=== PATIENT | female | born 1950 | race Caucasian/White ===

== ENCOUNTER 2019-03-10 17:25 | Emergency (ER) | payer MEDICARE ==
--- NOTE | 2019-03-10 17:31 | ER Document Report ---
ED General - General Stated Complaint: RESPIRATORY DISTRESS Time Seen by Provider: 03/10/19 17:31 Primary Care Provider: FARTUN SANCHEZ PA-C [NO LOCAL MD] - Follow up in 3-5 days Notes: Patient is a 68-year-old female with history of COPD that presents to the emergency department for chief complaint of shortness of breath and difficulty breathing. Patient reports that she started feeling more short of breath with the last 48 hours, she was diagnosed with COPD about a year ago, she does use inhaler at home with albuterol, but is not on home oxygen. She states she is noticed wheezing, cough and increased work of breathing. She denies having any chest pain, fevers, chills, night sweats, nausea, vomiting or abdominal pain. She denies being on steroids currently, is not sure of any other medications she takes for COPD. Past Medical History: COPD, hypertension, hyperlipidemia Past Surgical History: Denies pertinent surgical history Social History: Former smoker, no alcohol or drug use, lives at home Family History: Reviewed and noncontributory for presenting illness Allergies: Reviewed, see documented allergy list. REVIEW OF SYSTEMS: Other than noted above, the 12 point review of systems was reviewed with the patient and were negative, all pertinent findings are included in the HPI. PHYSICAL EXAMINATION: Vital signs reviewed, nursing noted reviewed. GENERAL: Patient is in moderate respiratory distress, increased work of breathing HEAD: Atraumatic, normocephalic. EYES: Eyes appear normal, extraocular movements intact, sclera anicteric, conjunctiva are normal. ENT: nares patent, oropharynx clear without exudates. Moist mucous membranes. NECK: Normal range of motion, supple without lymphadenopathy LUNGS: Moderate respiratory distress, increased work of breathing, diffuse bilateral wheezing noted throughout all lung mendieta. HEART: Regular rate and rhythm without murmurs ABDOMEN: Soft, nontender, normoactive bowel sounds. No rebound, guarding, or rigidity. No masses appreciated. EXTREMITIES: Nontender, good range of motion, no pitting or edema. NEUROLOGICAL: No focal neurological deficits. Moves all extremities spontaneously Motor and sensory grossly intact on exam. PSYCH: Patient appears anxious on initial exam SKIN: Warm, Dry, normal turgor, no rashes or lesions noted on exposed skin TRAVEL OUTSIDE OF THE [place] IN LAST 30 DAYS: No - Related Data Allergies/Adverse Reactions: No Known Allergies Allergy (Verified 03/15/13 21:32) Past Medical History - Social History Smoking Status: Former Smoker Family History: Reviewed & Not Pertinent, Hypertension - Past Medical History Cardiac Medical History: Reports: Hx Hypercholesterolemia, Hx Hypertension Pulmonary Medical History: Reports: Hx Bronchitis, Hx COPD Denies: Hx Tuberculosis Endocrine Medical History: Reports: Hx Hypothyroidism GI Medical History: Reports: Hx Gastroesophageal Reflux Disease, Hx Hiatal Hernia Psychiatric Medical History: Reports: Hx Depression Past Surgical History: Denies: Hx Pacemaker - Immunizations Hx Diphtheria, Pertussis, Tetanus Vaccination: No Physical Exam - Vital signs Vitals: Resp Pulse Ox 28 H 98 03/10/19 17:40 03/10/19 17:40 Course - Re-evaluation Re-evalutation: Patient seen and examined vital signs reviewed. Laboratory data and/or imaging were ordered as appropriate for the patient's presenting symptoms and complaint, with consideration of any critical or life t hreatening conditions that may be associated with their obtained history and exam as noted above. Patient was treated with BiPAP, duoneb breathing treatments, IV magnesium, and IV Solu-Medrol Results were reviewed when available and demonstrated negative chest x-ray, blood work was unremarkable as well The patient was re-evaluated and was improved, patient was removed from BiPAP after being on it for about an hour, she was breathing much easier, her hypoxia was resolved, she was 97% on room air on my repeat exam. Evaluation was most consistent with acute exacerbation of COPD, patient be di scharged home on prednisone, given budesonide breathing treatments for home as well. Results were discussed with the patient at this point, after careful consideration I feel that that patient can be discharged from the emergency department, the patient was educated treatments and reasons to return to the emergency department based on their presumed diagnosis as noted above, they were advised to followup with a primary care physician in 2-3 days. Patient was agreeable to plan of care. *Note is created using voice recognition software and may contain spelling, syntax or grammatical errors. Microbiology 03/10/19 19:20 Blood Culture - Preliminary Blood NO GROWTH IN 24 HOURS 03/10/19 17:53 Blood Culture - Preliminary Blood NO GROWTH IN 24 HOURS Laboratory 03/10/19 03/10/19 03/10/19 17:28 17:28 17:28 WBC Cancelled RBC Cancelled Hgb Cancelled Hct Cancelled MCV Cancelled MCH Cancelled MCHC Cancelled RDW Cancelled Plt Count Cancelled Total Counted Seg Neutrophils % Cancelled Seg Neuts % (Manual) Lymphocytes % Cancelled Lymphocytes % (Manual) Monocytes % Cancelled Monocytes % (Manual) Eosinophils % Cancelled Eosinophils % (Manual) Basophils % Cancelled Basophils % (Manual) Absolute Neutrophils Cancelled Abs Neuts (Manual) Absolute Lymphocytes Cancelled Abs Lymphs (Manual) Absolute Monocytes Cancelled Abs Monocytes (Manual) Absolute Eosinophils Cancelled Absolute Eos (Manual) Absolute Basophils Cancelled Abs Basophils (Manual) Platelet Estimate Cancelled Clumped Platelets Platelet Comment Anisocytosis PT 13.7 INR 1.00 VBG pH VBG pCO2 VBG HCO3 VBG Base Excess Sodium 143.1 Potassium 4.4 Chloride 108 H Carbon Dioxide 21 L Anion Gap 14 BUN 14 Creatinine 0.79 Est GFR ( Amer) > 60 Est GFR (Non-Af Amer) > 60 Glucose 108 Lactic Acid Calcium 9.8 Total Bilirubin 0.8 Direct Bilirubin 0.4 Neonat Total Bilirubin Not Reportable Neonat Direct Bilirubin Not Reportable Neonat Indirect Bili Not Reportable AST 29 ALT 21 Alkaline Phosphatase 79 Troponin I Total Protein 8.8 H Albumin 4.9 Slides for Path Review Cancelled 03/10/19 03/10/19 03/10/19 17:53 17:53 18:21 WBC 22.0 H RBC 4.78 Hgb 14.2 Hct 42.3 MCV 89 MCH 29.6 MCHC 33.5 RDW 14.5 H Plt Count 253 Total Counted 100 Seg Neutrophils % Not Reportable Seg Neuts % (Manual) 71 Lymphocytes % Not Reportable Lymphocytes % (Manual) 23 Monocytes % Not Reportable Monocytes % (Manual) 3 Eosinophils % Not Reportable Eosinophils % (Manual) 1 Basophils % Not Reportable Basophils % (Manual) 2 Absolute Neutrophils Not Reportable Abs Neuts (Manual) 15.6 H Absolute Lymphocytes Not Reportable Abs Lymphs (Manual) 5.1 H Absolute Monocytes Not Reportable Abs Monocytes (Manual) 0.7 Absolute Eosinophils Not Reportable Absolute Eos (Manual) 0.2 Absolute Basophils Not Reportable Abs Basophils (Manual) 0.4 H Platelet Estimate Clumped Platelets PRESENT Platelet Comment ADEQUATE Anisocytosis SLIGHT PT INR VBG pH Cancelled VBG pCO2 Cancelled VBG HCO3 Cancelled VBG Base Excess Cancelled Sodium Potassium Chloride Carbon Dioxide Anion Gap BUN Creatinine Est GFR ( Amer) Est GFR (Non-Af Amer) Glucose Lactic Acid 1.2 Calcium Total Bilirubin Direct Bilirubin Neonat Total Bilirubin Neonat Direct Bilirubin Neonat Indirect Bili AST ALT Alkaline Phosphatase Troponin I Total Protein Albumin Slides for Path Review 03/10/19 03/10/19 03/10/19 18:30 19:20 19:20 WBC RBC Hgb Hct MCV MCH MCHC RDW Plt Count Total Counted Seg Neutrophils % Seg Neuts % (Manual) Lymphocytes % Lymphocytes % (Manual) Monocytes % Monocytes % (Manual) Eosinophils % Eosinophils % (Manual) Basophils % Basophils % (Manual) Absolute Neutrophils Abs Neuts (Manual) Absolute Lymphocytes Abs Lymphs (Manual) Absolute Monocytes Abs Monocytes (Manual) Absolute Eosinophils Absolute Eos (Manual) Absolute Basophils Abs Basophils (Manual) Platelet Estimate Clumped Platelets Platelet Comment Anisocytosis PT INR VBG pH Cancelled 7.37 VBG pCO2 Cancelled 39.1 VBG HCO3 Cancelled 22.2 VBG Base Excess Cancelled -2.7 Sodium Potassium Chloride Carbon Dioxide Anion Gap BUN Creatinine Est GFR ( Amer) Est GFR (Non-Af Amer) Glucose Lactic Acid Calcium Total Bilirubin Direct Bilirubin Neonat Total Bilirubin Neonat Direct Bilirubin Neonat Indirect Bili AST ALT Alkaline Phosphatase Troponin I < 0.012 Total Protein Albumin Slides for Path Review Chest X-Ray 03/10/19 17:31 IMPRESSION: NO ACUTE RADIOGRAPHIC FINDING IN THE CHEST. - Vital Signs Vital signs: Temp Pulse Resp BP Pulse Ox 98.2 F 22 H 130/60 H 96 03/10/19 17:44 03/10/19 20:01 03/10/19 20:01 03/10/19 20:01 - Laboratory Result Diagrams: 03/10/19 18:21 03/10/19 17:28 Laboratory results interpreted by me: 03/10/19 03/10/19 17:28 18:21 WBC 22.0 H RDW 14.5 H Abs Neuts (Manual) 15.6 H Abs Lymphs (Manual) 5.1 H Abs Basophils (Manual) 0.4 H Chloride 108 H Carbon Dioxide 21 L Total Protein 8.8 H - EKG Interpretation by Me Additional EKG results interpreted by me: EKG demonstrates sinus tachycardia with a ventricular rate of 100 bpm, left axis deviation, QTC 480 ms, there is T wave inversion noted in lead aVL, no ST elevation, this is compared with a prior EKG from 07/03/2016, without significant change. Critical Care Note - Critical Care Note Total time excluding time spent on procedures (mins): 35 Comments: Critical care time 35 minutes exclusive from separate billable procedures for a patient requiring complex medical decision making, and high potential for clinical deterioration. In a patient with acute exacerbation of COPD, requiring BiPAP therapy for initial management, and resuscitation. Time spent obtaining history from patient or surrogate, discussions with consultants, development of treatment plan with patient or surrogate, evaluation of patient's response to treatment, examination of patient, ordering and performing treatments and interventions, ordering and review of laboratory studies, re-evaluation of patient's condition, ordering and review of radiographic studies and review of old charts Discharge - Discharge Clinical Impression: Acute exacerbation of chronic obstructive pulmonary disease (COPD) Condition: Stable Disposition: HOME, SELF-CARE Instructions: Chronic Obstructive Lung Disease ([facility]) Additional Instructions: Please return to the emergency department if you have any worsening, or concern of your symptoms. Please return to the emergency department if you develop chest pain, difficulty breathing, severe abdominal pain, or ongoing vomiting. Please follow-up with your primary care physician in 2-3 days and any other recommended physicians. If prescribed, take all medications as directed. If you have any questions or concerns do not hesitate to return the emergency department for evaluation. Please use your albuterol nebulizer, at least 4 times daily, if you need to you can use it every 4 hours. If your symptoms worsen and you develop more shortness of breath, please return to the emergency department immediately. Prescriptions: RX: Budesonide [Pulmicort] 0.5 mg IH BID #60 ampul.neb RX: Prednisone [Deltasone 10 mg Tablet] 50 mg PO DAILY #25 tablet Referrals: FARTUN SANCHEZ PA-C [NO LOCAL MD] - Follow up in 3-5 days
--- NOTE | 2019-03-10 17:58 | RADIOLOGY REPORT (SQ) ---
EXAM DESCRIPTION: CHEST SINGLE VIEW COMPLETED DATE/TIME: 03/10/2019 5:46 pm REASON FOR STUDY: bed 2 sepsis protocol COMPARISON: 07/03/2016 EXAM PARAMETERS: NUMBER OF VIEWS: One view. TECHNIQUE: Single frontal radiographic view of the chest acquired. RADIATION DOSE: NA LIMITATIONS: None. FINDINGS: LUNGS AND PLEURA: No opacities, masses or pneumothorax. No pleural effusion. MEDIASTINUM AND HILAR STRUCTURES: No masses. Contour normal. HEART AND VASCULAR STRUCTURES: Heart normal in size. Normal vasculature. BONES: No acute findings. HARDWARE: None in the chest. OTHER: No other significant finding. IMPRESSION: NO ACUTE RADIOGRAPHIC FINDING IN THE CHEST. TECHNICAL DOCUMENTATION: JOB ID: [id number] [employer]- All Rights Reserved Reading location - IP/workstation name: [email or web address]
[2019-03-10 18:04] LABS: PROTHROMBIN TIME 13.7 SEC (11.4-15.4)
[2019-03-10 18:26] LABS: ALANINE AMINOTRANSFERASE 21 U/L (9-52); ALBUMIN 4.9 g/dL (3.5-5.0); ALKALINE PHOSPHATASE 79 U/L (38-126); ANION GAP 14 (5-19); ASPARTATE AMINO TRANSFERASE 29 U/L (14-36); BILIRUBIN,DIRECT 0.4 mg/dL (0.0-0.4); BILIRUBIN,TOTAL 0.8 mg/dL (0.2-1.3); BLOOD UREA NITROGEN 14 mg/dL (7-20); CALCIUM 9.8 mg/dL (8.4-10.2); CARBON DIOXIDE 21 mmol/L (22-30); CHLORIDE 108 mmol/L (98-107); GLUCOSE 108 mg/dL (75-110); POTASSIUM 4.4 mmol/L (3.6-5.0); SODIUM 143.1 mmol/L (137-145); TOTAL PROTEIN 8.8 g/dL (6.3-8.2)
[2019-03-10] MEDS: MAGNESIUM SULFATE/D5W 1 GM/100 ML RTUPB IV SCH ×2 (18:34→18:58)
[2019-03-10 18:43] LABS: HEMATOCRIT 42.3 % (36.0-47.0); HEMOGLOBIN 14.2 g/dL (12.0-15.5); MEAN CORPUSCULAR HEMOGLOBIN 29.6 pg (27.0-33.4); MEAN CORPUSCULAR HGB CONC 33.5 g/dL (32.0-36.0); MEAN CORPUSCULAR VOLUME 89 fl (80-97); PLATELET COUNT 253 10^3/uL (150-450); RED BLOOD COUNT 4.78 10^6/uL (3.72-5.28); RED CELL DISTRIBUTION WIDTH 14.5 % (11.5-14.0)
[2019-03-10 19:10] LABS: ABSOLUTE LYMPHOCYTES# (MANUAL) 5.1 10^3/uL (0.5-4.7); ABSOLUTE MONOCYTES # (MANUAL) 0.7 10^3/uL (0.1-1.4); ABSOLUTE NEUTROPHILS# (MANUAL) 15.6 10^3/uL (1.7-8.2); BASOPHILS % (MANUAL) 2 % (0-2); EOSINOPHILS % (MANUAL) 1 % (0-6); LYMPHOCYTES % (MANUAL) 23 % (13-45); MONOCYTES % (MANUAL) 3 % (3-13); SEGMENTED NEUTROPHILS % (MAN) 71 % (42-78); TOTAL CELLS COUNTED 100
[2019-03-10 19:13] LABS: ANISOCYTOSIS SLIGHT; PLATELET CLUMPS PRESENT; PLATELET COMMENT ADEQUATE
[2019-03-10 19:28] LABS: VENOUS BLOOD BASE EXCESS -2.7 mmol/L; VENOUS BLOOD HCO3 22.2 mmol/L (20-32); VENOUS BLOOD PCO2 39.1 mmHg (35-63); VENOUS BLOOD PH 7.37 (7.30-7.42)
[2019-03-10 21:22] VITALS: BP 130/60
--- NOTE | 2019-03-10 22:21 | EKG REPORT ---
SEVERITY:- ABNORMAL ECG - SINUS TACHYCARDIA INFERIOR INFARCT, OLD : Confirmed by: Gissel Holt MD 10-Mar-2019 22:20:12
== END 2019-03-10 21:22 | disposition home or self-care (01) ==
LOC: ER 17:25
DX: J44.1 Chronic obstructive pulmonary disease with (acute) exacerbation (principal); Z79.899 Other long term (current) drug therapy; R06.02 Shortness of breath; R09.02 Hypoxemia; R00.0 Tachycardia, unspecified; I10 Essential (primary) hypertension; Z87.891 Personal history of nicotine dependence
CPT/HCPCS: 93005; 99291; 96365; 36415; 87040; 85025; 85610; 80053; 84484; 82803; 83605; 71045; 93010; 94660; J3475

== ENCOUNTER 2019-10-13 16:46 | Emergency (ER) | payer MEDICARE ==
[2019-10-13] MEDS ORDERED: METHYLPREDNISOLONE INJ 125 MG/2 ML SDV IV ONE (17:01)
[2019-10-13] MEDS ORDERED: MAGNESIUM SULFATE/D5W 1 GM/100 ML RTUPB IV ONE ×2 (17:01→17:07)
[2019-10-13] MEDS ORDERED: IPRATROPIUM/ALBUTEROL 0.5-2.5 MG/3 ML AMPUL NEB ONE (17:01)
--- NOTE | 2019-10-13 17:07 | ER Document Report ---
ED Medical Screen (RME) - General Chief Complaint: Breathing Difficulty Stated Complaint: DIFFICULTY BREATHING Primary Care Provider: RUBI LLANOS MD [Primary Care Provider] - Follow up as needed TRAVEL OUTSIDE OF THE [place] IN LAST 30 DAYS: No - HPI Notes: 10/13/19 17:02 Patient is a 69-year-old female with history of non-oxygen dependent COPD, hypertension, hyperlipidemia who presents complaining of wheezing and cough x2 weeks. Pt believes it to be her COPD flaring up again. No fever, CP, abd pain, n/v/d. I have treated and performed a rapid initial assessment of this patient. A comprehensive ED assessment and evaluation of the patient, analysis of test results and completion of medical decision making process will be conducted by additional ED providers. PHYSICAL EXAMINATION: GENERAL: Well-appearing, well-nourished and in no acute distress. Answers questions appropriately. Lungs: Wheezing bilaterally. No retractions. Extremities: No edema - Related Data Allergies/Adverse Reactions: No Known Allergies Allergy (Verified 03/15/13 21:32) Past Medical History - Past Medical History Cardiac Medical History: Reports: Hx Hypercholesterolemia, Hx Hypertension Pulmonary Medical History: Reports: Hx Bronchitis, Hx COPD Denies: Hx Tuberculosis Endocrine Medical History: Reports: Hx Hypothyroidism Renal/ Medical History: Denies: Hx Peritoneal Dialysis GI Medical History: Reports: Hx Gastroesophageal Reflux Disease, Hx Hiatal Hernia Psychiatric Medical History: Reports: Hx Depression Past Surgical History: Denies: Hx Pacemaker - Immunizations Hx Diphtheria, Pertussis, Tetanus Vaccination: No Physical Exam - Vital signs Vitals: Temp Pulse Resp BP Pulse Ox 99.0 F 98 20 146/63 H 92 10/13/19 16:50 10/13/19 16:50 10/13/19 16:50 10/13/19 16:50 10/13/19 16:50 Course - Vital Signs Vital signs: Temp Pulse Resp BP Pulse Ox 99.0 F 98 20 146/63 H 92 10/13/19 16:50 10/13/19 16:50 10/13/19 16:50 10/13/19 16:50 10/13/19 16:50 Doctor's Discharge - Discharge Referrals: RUBI LLANOS MD [Primary Care Provider] - Follow up as needed
[2019-10-13 17:40] LABS: ABSOLUTE BASOPHILS # (AUTO) 0.1 10^3/uL (0.0-0.2); ABSOLUTE EOSINOPHILS # (AUTO) 0.4 10^3/uL (0.0-0.6); ABSOLUTE LYMPHOCYTES (AUTO) 4.8 10^3/uL (0.5-4.7); ABSOLUTE MONOCYTES (AUTO) 1.7 10^3/uL (0.1-1.4); ABSOLUTE NEUT (AUTO) 4.1 10^3/uL (1.7-8.2); BASOPHILS % (AUTO) 1.1 % (0-2); EOSINOPHILS % (AUTO) 3.7 % (0-6); HEMATOCRIT 44.4 % (36.0-47.0); HEMOGLOBIN 14.8 g/dL (12.0-15.5); MEAN CORPUSCULAR HEMOGLOBIN 29.9 pg (27.0-33.4); MEAN CORPUSCULAR HGB CONC 33.3 g/dL (32.0-36.0); MEAN CORPUSCULAR VOLUME 90 fl (80-97); PLATELET COUNT 341 10^3/uL (150-450); RED BLOOD COUNT 4.94 10^6/uL (3.72-5.28); RED CELL DISTRIBUTION WIDTH 13.1 % (11.5-14.0); SEGMENTED NEUTROPHILS % (AUTO) 37.2 % (42-78); TOTAL CELLS COUNTED % (AUTO) 100 %; WHITE BLOOD COUNT 11.1 10^3/uL (4.0-10.5)
[2019-10-13 17:57] LABS: ALBUMIN 4.7 g/dL (3.5-5.0); ALKALINE PHOSPHATASE 98 U/L (38-126); ANION GAP 12 (5-19); ASPARTATE AMINO TRANSFERASE 26 U/L (14-36); BILIRUBIN,DIRECT 0.2 mg/dL (0.0-0.4); BILIRUBIN,TOTAL 0.8 mg/dL (0.2-1.3); BLOOD UREA NITROGEN 13 mg/dL (7-20); CALCIUM 9.9 mg/dL (8.4-10.2); CARBON DIOXIDE 24 mmol/L (22-30); CHLORIDE 107 mmol/L (98-107); GLUCOSE 95 mg/dL (75-110); POTASSIUM 5.2 mmol/L (3.6-5.0); TOTAL PROTEIN 8.3 g/dL (6.3-8.2)
--- NOTE | 2019-10-13 18:16 | RADIOLOGY REPORT (SQ) ---
EXAM DESCRIPTION: CHEST 2 VIEWS COMPLETED DATE/TIME: 10/13/2019 6:03 pm REASON FOR STUDY: SOB COMPARISON: 03/10/2019 TECHNIQUE: Frontal and lateral radiographic views of the chest acquired. NUMBER OF VIEWS: Two view. LIMITATIONS: None. FINDINGS: LUNGS AND PLEURA: Lungs are hyperinflated, as before. Slightly more interstitial pattern, unclear if this reflects bronchitis or viral illness or subtle edema. No consolidating pneumonia or significant pleural fluid, however. MEDIASTINUM AND HILAR STRUCTURES: Stable contours pre HEART AND VASCULAR STRUCTURES: Normal heart size. BONES: Osteopenic. HARDWARE: None in the chest. OTHER: No other significant finding. IMPRESSION: Interstitial changes in the lungs with differential as above. No consolidating pneumoni a. TECHNICAL DOCUMENTATION: JOB ID: [id number] [employer]- All Rights Reserved Reading location - IP/workstation name: [email or web address]
[2019-10-13 18:29] LABS: APPEARANCE,URINE SLIGHTLY-CLOUDY; BILIRUBIN,URINE NEGATIVE (NEGATIVE); COLOR,URINE YELLOW; GLUCOSE, URINE NEGATIVE (NEGATIVE); KETONES,URINE TRACE mg/dL (NEGATIVE); PROTEIN,URINE 30 mg/dL (NEGATIVE); URINE SPECIFIC GRAVITY 1.026
--- NOTE | 2019-10-13 18:31 | ER Document Report ---
ED General - General Chief Complaint: Breathing Difficulty Stated Complaint: DIFFICULTY BREATHING Time Seen by Provider: 10/13/19 17:13 Primary Care Provider: RUBI LLANOS MD [COMMUNITY BASED STAFF] - Follow up as needed TRAVEL OUTSIDE OF THE [place] IN LAST 30 DAYS: No - HPI Notes: Patient is a 69-year-old female with a history of COPD who presents the emergency department for evaluation of cough and shortness of breath. She states she is had symptoms for about the last 2 weeks. She states that her congestion and coughing seem to be worse when she lays down. She denies any fevers or chills, no nausea or vomiting. She has had some pain in her right shoulder, exacerbated by internal rotation, present for the last several days as well. She denies any injury. She states she has not woken up suddenly short of breath in the middle of the night. She denies any history of congestive heart failure. - Related Data Allergies/Adverse Reactions: No Known Allergies Allergy (Verified 10/13/19 17:05) Home Medications: List reviewed, please see chart Past Medical History - General Information source: Patient - Social History Smoking Status: Former Smoker Chew tobacco use (# tins/day): No Frequency of alcohol use: None Drug Abuse: None Family History: Reviewed & Not Pertinent, Hypertension Patient has suicidal ideation: No Patient has homicidal ideation: No - Past Medical History Cardiac Medical History: Reports: Hx Hypercholesterolemia, Hx Hypertension Pulmonary Medical History: Reports: Hx Bronchitis, Hx COPD Denies: Hx Tuberculosis Endocrine Medical History: Reports: Hx Hypothyroidism Renal/ Medical History: Denies: Hx Peritoneal Dialysis GI Medical History: Reports: Hx Gastroesophageal Reflux Disease, Hx Hiatal Hernia Psychiatric Medical History: Reports: Hx Depression Past Surgical History: Denies: Hx Pacemaker - Immunizations Hx Diphtheria, Pertussis, Tetanus Vaccination: No Review of Systems - Review of Systems Constitutional: No symptoms reported EENT: No symptoms reported Cardiovascular: See HPI Respiratory: See HPI Gastrointestinal: No symptoms reported Genitourinary: No symptoms reported Musculoskeletal: No symptoms reported Skin: No symptoms reported Neurological/Psychological: No symptoms reported Physical Exam - Vital signs Vitals: Temp Pulse Resp BP Pulse Ox 99.0 F 98 20 146/63 H 92 10/13/19 16:50 10/13/19 16:50 10/13/19 16:50 10/13/19 16:50 10/13/19 16:50 - Notes Notes: This is a 69-year-old female who appears her stated age in no acute distress. Vital signs reviewed, please refer to chart. Head is normocephalic, atraumatic. Pupils equal round, reactive to light. Neck is supple without meningismus. Heart is regular rate and rhythm. Lungs reveal mildly prolonged expiratory phase with a scant, scattered expiratory wheezes. Abdomen is soft, nontender, normoactive bowel sounds throughout. Extremities without cyanosis, clubbing. Posterior calves are nontender. Peripheral pulses are equal. Skin is warm and dry. Patient is awake, alert, neurological exam is nonfocal. Course - Re-evaluation Re-evalutation: 10/13/19 18:36 Patient presents to the emergency department for evaluation. At the time of my evaluation, she had already been seen through triage, had blood work obtained, as well as imaging, and treatment. She was in the middle of her first gram of magnesium. She was feeling significantly proved. Her blood pressure was borderline low, so decision was made to hold the second gram of magnesium. Patient states she feeling significantly improved. I did review the radiolo gist's note in regards to possible edema on her x-ray. Her lung exam is not consistent with that, but she does offer a history of some orthopnea. Given this information, I was inclined to add a proBNP. This was explained to the patient. she is stable, we will continue to monitor. 10/13/19 20:12 Patient continues to be stable. Her proBNP was normal. I will send her home with antibiotics, steroids. She does have a nebulizer, she is encouraged to use it at home. Follow-up with primary care, return to the ED with worsening. - Vital Signs Vital signs: Temp Pulse Resp BP Pulse Ox 99.0 F 98 19 122/98 H 94 10/13/19 16:50 10/13/19 16:50 10/13/19 19:29 10/13/19 19:29 10/13/19 19:29 - Laboratory Result Diagrams: 10/13/19 17:23 10/13/19 17:23 Laboratory results interpreted by me: 10/13/19 10/13/19 10/13/19 17:23 17:23 18:00 WBC 11.1 H [place] % (Auto) 15.0 H Absolute Lymphs (auto) 4.8 H Absolute Monos (auto) 1.7 H Seg Neutrophils % 37.2 L Potassium 5.2 H Total Protein 8.3 H Urine Protein 30 H Urine Ketones TRACE H Urine Blood SMALL H Urine Urobilinogen 2.0 H Leukocyte Esterase Rfl TRACE H - Diagnostic Test Radiology reviewed: Image reviewed, Reports reviewed Radiology results interpreted by me: 10/13/19 18:37 Chest X-Ray 10/13/19 17:01 IMPRESSION: Interstitial changes in the lungs with differential as above. No consolidating pneumonia. Discharge - Discharge Clinical Impression: COPD with acute exacerbation Condition: Stable Disposition: HOME, SELF-CARE Instructions: Chronic Obstructive Lung Disease ([facility]) Additional Instructions: Take medications as prescribed, starting tomorrow. Follow-up with primary care this week. Return to the emergency department with worsening or new concerning symptoms of any sort. Referrals: RUBI LLANOS MD [COMMUNITY BASED STAFF] - Follow up as needed
[2019-10-13] MEDS ORDERED: LEVOFLOXACIN 750 MG TABLET PO ONE (20:11)
[2019-10-13 20:38] VITALS: BP 147/55
== END 2019-10-13 20:39 | disposition home or self-care (01) ==
LOC: ER 16:46
DX: J44.1 Chronic obstructive pulmonary disease with (acute) exacerbation (principal); E78.00 Pure hypercholesterolemia, unspecified; I10 Essential (primary) hypertension
CPT/HCPCS: 94640; 99285; 96375; 96365; 36415; 85025; 80053; 81001; 83880; 71046; J2930; J3475; A9270 ×2; J7620

== ENCOUNTER 2020-04-19 22:53 | Emergency (ER) | payer MEDICARE ==
[2020-04-19 23:12] LABS: HEMATOCRIT 39.7 % (36.0-47.0); HEMOGLOBIN 13.2 g/dL (12.0-15.5); MEAN CORPUSCULAR HEMOGLOBIN 30.1 pg (27.0-33.4); MEAN CORPUSCULAR HGB CONC 33.2 g/dL (32.0-36.0); MEAN CORPUSCULAR VOLUME 91 fl (80-97); PLATELET COUNT 344 10^3/uL (150-450); RED BLOOD COUNT 4.37 10^6/uL (3.72-5.28); RED CELL DISTRIBUTION WIDTH 14.7 % (11.5-14.0); WHITE BLOOD COUNT 26.5 10^3/uL (4.0-10.5)
[2020-04-19 23:29] LABS: ALBUMIN 3.8 g/dL (3.5-5.0); ALKALINE PHOSPHATASE 64 U/L (38-126); ANION GAP 7 (5-19); ASPARTATE AMINO TRANSFERASE 22 U/L (14-36); BILIRUBIN,TOTAL 0.9 mg/dL (0.2-1.3); BLOOD UREA NITROGEN 24 mg/dL (7-20); CALCIUM 8.8 mg/dL (8.4-10.2); CARBON DIOXIDE 26 mmol/L (22-30); CHLORIDE 105 mmol/L (98-107); CREATINE KINASE 43 U/L (30-135); GLUCOSE 105 mg/dL (75-110); TOTAL PROTEIN 6.8 g/dL (6.3-8.2)
[2020-04-19 23:40] LABS: CREATINE KINASE MB 0.87 ng/mL (<4.55); TROPONIN I < 0.012 ng/mL
--- NOTE | 2020-04-19 23:42 | ER Document Report ---
ED Cardiac - General Chief Complaint: Chest Pain > 30 Stated Complaint: CHEST PAIN Time Seen by Provider: 04/19/20 23:34 Primary Care Provider: IAN GÓMEZ MD [Primary Care Provider] - Follow up in 3-5 days Notes: Patient is a 70-year-old female that comes to the emergency department for chief complaint of chest pain. She states that symptoms have been coming and going for "some time now", pain returned and felt somewhat worse tonight around 9 PM while eating, she took 2 sublingual nitroglycerin, she was given 324 mg of aspirin by EMS. She states currently she does not have any pain, the last time she felt it was in the right side of her chest. She does report a nagging cough for " a while" that is not resolved. She states she saw her primary care for this a few days ago but her symptoms continue. She denies nausea, vomiting, heartburn, fever/chills, shortness of breath. Past medical history includes hypertension, hyperlipidemia, smoking, COPD. She states she took her nebulizer 2 hours ago. She denies history of PR, stress tests, or cardiac catheterization. TRAVEL OUTSIDE OF THE [place] IN LAST 30 DAYS: No - Related Data Allergies/Adverse Reactions: No Known Allergies Allergy (Verified 04/19/20 23:01) Past Medical History - General Information source: Patient - Social History Smoking Status: Former Smoker Frequency of alcohol use: None Drug Abuse: None Lives with: Family Family History: Reviewed & Not Pertinent, Hypertension Patient has homicidal ideation: No - Past Medical History Cardiac Medical History: Reports: Hx Hypercholesterolemia, Hx Hypertension Pulmonary Medical History: Reports: Hx Bronchitis, Hx COPD Denies: Hx Tuberculosis Endocrine Medical History: Reports: Hx Hypothyroidism Renal/ Medical History: Denies: Hx Peritoneal Dialysis GI Medical History: Reports: Hx Gastroesophageal Reflux Disease, Hx Hiatal Hernia Psychiatric Medical History: Reports: Hx Depression Past Surgical History: Denies: Hx Pacemaker - Immunizations Hx Diphtheria, Pertussis, Tetanus Vaccination: No Review of Systems - Review of Systems Constitutional: No symptoms reported EENT: No symptoms reported Cardiovascular: See HPI Respiratory: See HPI Gastrointestinal: No symptoms reported Genitourinary: No symptoms reported Female Genitourinary: No symptoms reported Musculoskeletal: See HPI Skin: No symptoms reported Hematologic/Lymphatic: No symptoms reported Neurological/Psychological: No symptoms reported Physical Exam - Vital signs Vitals: Temp Pulse Resp BP Pulse Ox 98.1 F 82 20 131/58 H 96 04/19/20 22:54 04/19/20 22:54 04/19/20 22:54 04/19/20 22:54 04/19/20 22:54 - Notes Notes: GENERAL: Alert, interacts well. No acute distress. HEAD: Normocephalic, atraumatic. EYES: Pupils equal, round, and reactive to light. Extraocular movements intact. ENT: Oral mucosa moist, tongue midline. Oropharynx unremarkable. Airway patent. NECK: Full range of motion. Supple. Trachea midline. No lymphadenopathy. LUNGS: Clear to auscultation bilaterally, no wheezes, rales, or rhonchi. No respiratory distress. There is reproducible tenderness mainly along the right mid chest wall without erythema, swelling, or severe tenderness. HEART: Regular rate and rhythm. No murmur ABDOMEN: Soft, non-tender. Non-distended. EXTREMITIES: Moves all 4 extremities spontaneously. No edema, normal radial and dorsalis pedis pulses bilaterally. No cyanosis. BACK: no cervical, thoracic, lumbar midline tenderness. No saddle anesthesia, normal distal neurovascular exam. Moves all extremities in full range of motion. NEUROLOGICAL: Alert and oriented x3. Normal speech. Cranial nerves II through XII grossly intact. Strength 5/5 in all extremities. PSYCH: Normal affect, normal mood. SKIN: Warm, dry, normal turgor. No rashes or lesions noted. Course - Re-evaluation Re-evalutation: CBC shows leukocytosis at 26,000. I discussed this with patient. Patient almost always has leukocytosis that is significant when she is here, in addition to that she just completed prednisone a few days ago. I suspect this is the cause. Nonspecific. Chest x-ray unremarkable. Chemistry unremarkable. Troponin is negative. Patient has right-sided chest pain on exam and the pain is actually quite reproducible with tenderness. Patient also has coughing and has had coughing for an extended amount of time, cough is somewhat painful. She is not tachycardic or hypoxic, she has no lower extremity swelling, she does not smoke, she denies history of blood clot. Low suspicion of ACS or PE. Appears to be musculoskeletal. Troponins cycled and negative. I discussed with kenneth simmons. Patient is requesting something for the cough so she can sleep at night, she states that if she could just do that she would feel much better. She states she has close follow-up with her primary care provider as well. Discussed precautions and potential dangers of this but also provided her with symptom relief, discussed return precautions. Patient states appreciation and agreement. Stable and well-appearing at time of discharge. - Vital Signs Vital signs: Temp Pulse Resp BP Pulse Ox 98.4 F 82 24 H 123/93 H 95 04/20/20 03:02 04/19/20 22:54 04/20/20 03:02 04/20/20 03:02 04/20/20 03:02 - Laboratory Result Diagrams: 04/19/20 22:16 04/19/20 22:16 Laboratory results interpreted by me: 04/19/20 04/19/20 22:16 22:16 WBC 26.5 H RDW 14.7 H Abs Neuts (Manual) 12.5 H Abs Lymphs (Manual) 11.9 H Abs Monocytes (Manual) 1.9 H BUN 24 H - EKG Interpretation by Me Additional EKG results interpreted by me: EKG shows sinus rhythm at a rate of 82, borderline left axis deviation, QTC of 430, no T wave inversions or ST segment changes in consecutive leads Discharge - Discharge Clinical Impression: Right-sided chest pain, Cough, Chest wall pain Condition: Stable Disposition: HOME, SELF-CARE Additional Instructions: Your work-up is reassuring tonight. The pain appears to be from your chest wall. You have been provided with steroids, I recommend 1 compresses to the area, use the cough syrup only if needed at the lowest dose possible to help you sleep and for your coughing/pain symptoms. If you do so also take a stool softener to avoid constipation from this. Follow-up within the next several days with your primary care provider for recheck and additional management. Return if you worsen including severe worsening pain, passing out, difficulty breathing, vomiting, fever, or any other concerning or worsening symptoms. Prescriptions: Hydrocodone Bit/Homatropine [Hycodan Syrup 5-1.5 mg/5 ml Ud Cup] 5 ml PO Q4HP PRN #120 ml PRN Reason: Polyethylene Glycol 3350 [Miralax Powder 17 gm/Packet] 1 packet PO DAILY PRN #1 pkg PRN Reason: Referrals: IAN GÓMEZ MD [Primary Care Provider] - Follow up in 3-5 days
[2020-04-19 23:49] LABS: ABSOLUTE LYMPHOCYTES# (MANUAL) 11.9 10^3/uL (0.5-4.7); ABSOLUTE MONOCYTES # (MANUAL) 1.9 10^3/uL (0.1-1.4); ANISOCYTOSIS SLIGHT; BASOPHILS % (MANUAL) 0 % (0-2); BURR CELLS SLIGHT; EOSINOPHILS % (MANUAL) 1 % (0-6); LYMPHOCYTES % (MANUAL) 45 % (13-45); MONOCYTES % (MANUAL) 7 % (3-13); OVALOCYTES SLIGHT; PLATELET COMMENT ADEQUATE; POIKILOCYTOSIS SLIGHT; SEGMENTED NEUTROPHILS % (MAN) 47 % (42-78); TEAR DROP CELLS SLIGHT; TOTAL CELLS COUNTED 100; TOXIC GRANULATION SLIGHT
--- NOTE | 2020-04-20 00:49 | RADIOLOGY REPORT (SQ) ---
EXAM DESCRIPTION: XR CHEST 1 VIEW COMPLETED DATE/TME: 04/19/2020 23:59 CLINICAL HISTORY: 70 years, Female, chest pain COMPARISON: 03/10/2019 chest NUMBER OF VIEWS: 1 TECHNIQUE: Portable chest LIMITATIONS: None. FINDINGS: The heart size is normal. The patient is rotated. Osteopenia. Atheromatous change thoracic aorta. Lungs clear. No pneumothorax IMPRESSION: No acute cardiopulmonary process copyright 2010 [employer]- All Rights Reserved
[2020-04-20] MEDS ORDERED: ACETAMINOPHEN 325 MG TABLET PO ONE (01:23)
[2020-04-20] MEDS ORDERED: HYDROCODONE/ACETAMINOPHEN 5-325 MG (6 TAB/ER DISP) PO PRN (02:58)
[2020-04-20 03:19] VITALS: BP 123/93
--- NOTE | 2020-04-20 07:53 | EKG REPORT ---
SEVERITY:- OTHERWISE NORMAL ECG - SINUS RHYTHM BORDERLINE LEFT AXIS DEVIATION : Confirmed by: Francisco Kaur MD 20-Apr-2020 07:52:40
== END 2020-04-20 03:27 | disposition home or self-care (01) ==
LOC: ER 22:53
DX: R07.9 Chest pain, unspecified (principal); R05 Cough; R07.89 Other chest pain; Z87.891 Personal history of nicotine dependence; I10 Essential (primary) hypertension; J44.9 Chronic obstructive pulmonary disease, unspecified
CPT/HCPCS: 93005; 99285; 36415; 82553; 82550; 83690; 85025; 80053; 84484; 71045; 93010; A9270 ×2

== ENCOUNTER → 2020-09-05 | Outpatient (CLI) | payer MEDICARE, OTHER ==
--- NOTE | 2020-09-05 16:00 | RADIOLOGY REPORT (SQ) ---
EXAM DESCRIPTION: CHEST 2 VIEWS IMAGES COMPLETED DATE/TIME: 09/05/2020 12:25 pm REASON FOR STUDY: COPD COMPARISON: 04/20/2020 EXAM PARAMETERS: NUMBER OF VIEWS: two views TECHNIQUE: Digital Frontal and Lateral radiographic views of the chest acquired. RADIATION DOSE: NA LIMITATIONS: none FINDINGS: LUNGS AND PLEURA: No opacities, masses or pneumothorax. No pleural effusion. MEDIASTINUM AND HILAR STRUCTURES: No masses or contour abnormalities. HEART AND VASCULAR STRUCTURES: Heart normal size. No evidence for failure. BONES: No acute findings. HARDWARE: None in the chest. OTHER: No other significant finding. IMPRESSION: NO ACUTE RADIOGRAPHIC FINDING IN THE CHEST. TECHNICAL DOCUMENTATION: JOB ID: [id number] 2010 [email or web address]- All Rights Reserved Reading location - IP/workstation name: [email or web address]
== END ==
LOC: RAD 12:11
PROVIDERS: ATTEND Family Medicine
DX: J44.9 Chronic obstructive pulmonary disease, unspecified (principal)
CPT/HCPCS: 71046

== ENCOUNTER → 2020-09-12 | Outpatient (CLI) | payer MEDICARE, OTHER ==
--- NOTE | 2020-09-12 13:24 | WOMENS IMAGING REPORT ---
EXAM DESCRIPTION: 3D SCREENING MAMMO BILAT IMAGES COMPLETED DATE/TIME: 09/12/2020 1:08 pm REASON FOR STUDY: Z12.31 ENCNTR SCREEN MAMMOGRAM FOR MALIGNANT NEOPLASM OF BREAST Z12.31 ENCNTR SCR EEN MAMMOGRAM FOR MALIGNANT NEOPLASM OF NUSRAT Z78.0 ASYMPTOMATIC MENOPAUSAL STATE COMPARISON: 2013 EXAM PARAMETERS: Views: Standard craniocaudal and mediolateral oblique views of each breast recorded using digital acquisition and breast tomosynthesis. Read with the assistance of CAD. .[facility] - R2 Quality Control Assistant Version 9.2 LIMITATIONS: None. FINDINGS: No suspicious masses, suspicious calcifications or architectural distortion. No areas of c oncern. IMPRESSION: NEGATIVE MAMMOGRAM. BIRADS 1. BREAST DENSITY: b. There are scattered areas of fibroglandular density. BIRAD: ASSESSMENT: 1 NEGATIVE RECOMMENDATION: ROUTINE SCREENING COMMENT: The patient has been notified of the results by letter per MQSA requirements. Additional no tification policies are in place for contacting patient with suspicious or incomplete findings. Quality ID #[id number]: The [employer] recommends an annual screening mammogram for women aged 40 years or over. This facility utilizes a reminder system to ensure that all patients receive reminder letters, and/or direct phone calls for appointments. This includes reminders for routine scr eening mammograms, diagnostic mammograms, or other Breast Imaging Interventions when appropriate. Th is patient will be placed in the appropriate reminder system. TECHNICAL DOCUMENTATION: FINDING NUMBER: (1) ASSESSMENT: (1) JOB ID: [id number] 2010 [email or web address]- All Rights Reserved Reading location - IP/workstation name: [email or web address]
--- NOTE | 2020-09-12 14:27 | WOMENS IMAGING REPORT ---
EXAM DESCRIPTION: BONE DENSITY HIP/SPINE IMAGES COMPLETED DATE/TIME: 09/12/2020 1:08 pm REASON FOR STUDY: Z78.0 ASYMPTOMATIC MENOPAUSAL STATE Z12.31 ENCNTR SCREEN MAMMOGRAM FOR MALIGNANT NEOPLASM OF NUSRAT Z78.0 ASYMPTOMATIC MENOPAUSAL STATE COMPARISON: 05/06/2014 TECHNIQUE: Dual-Energy X-ray Absorptiometry (DEXA) of the AP Spine and Hip. LIMITATIONS: None. FINDINGS: LUMBAR SPINE: The bone mineral density (BMD) measured from L1-L4 in the AP projection correlates with a T-score of -3.2, which is osteoporosis as defined by the World Health Organization. BMD Change vs Baseline: -6.3% HIP: The bone mineral density (BMD) measured in the left hip correlates with a T-score of -1.7 in the femo ral neck, which is osteopenia as defined by the World Health Organization. BMD Change vs Baseline: -4.9% 10 year Fracture Risk Assessment: Major Osteoporotic Fracture: Not available. Hip Fracture: Not available. IMPRESSION: 1. LUMBAR SPINE WHO CLASSIFICATION: OSTEOPOROSIS. 2. HIP WHO CLASSIFICATION: OSTEOPENIA. OVERALL ASSESSMENT: WHO CLASSIFICATION: OSTEOPOROSIS. COMMENT: The World Health Organization defines low BMD as follows: T-score: Normal: At or above -1.0 Osteopenia: Between -1.0 and -2.5 Osteoporosis: At or below -2.5 without fractures Established osteoporosis: At or below -2.5 with fractures In general, you may wish to consider: Diagnosis Treatment Follow-up DEXA Normal BMD Prevention 2-3 years Osteopenia Prevention/Therapy 1-2 years Osteoporosis Therapy Yearly TECHNICAL DOCUMENTATION: JOB ID: [id number] 2010 [employer]- All Rights Reserved Reading location - IP/workstation name: [email or web address]
== END ==
LOC: WI 12:42
PROVIDERS: ATTEND Family Medicine
DX: Z12.31 Encounter for screening mammogram for malignant neoplasm of breast (principal); Z78.0 Asymptomatic menopausal state
CPT/HCPCS: 77063; 77067; 77080

== ENCOUNTER 2020-09-27 11:49 | Day surgery (SDC) | payer MEDICARE, OTHER ==
[~2020-09-27 11:49] MED LIST: CHONDR SU A NA/HYALUR INTRAOC KIT (SURGICARE) ONE; EPINEPHRINE INJ/PF 1 MG/1 ML AMPULE ONE; KETOROLAC TROMETHAMINE 0.45% 4 DROP/0.4 ML DROPERETTE OS PRN; LIDOCAINE 1%/PHENYLEPHRINE 1.5% 1 ML VIAL ONE
[2020-09-27] MEDS: TROPICAMIDE 1% OPH SOLN 15 ML OS PRN ×3 (12:18→12:52)
[2020-09-27] MEDS: CYCLOPENTOLATE 0.2%/PHENYLEPHRINE 1% OPH SOLN 2 ML OS PRN ×3 (12:18→12:52)
[2020-09-27] MEDS: TETRACAINE HCL 0.5% OPH SOLN 4 ML OS PRN ×3 (12:18→13:01)
[2020-09-27] MEDS: BESIFLOXACIN HCL 0.6% OPH SUSP 5 ML BOTTLE OS PRN ×4 (12:18→14:35)
[2020-09-27] MEDS ORDERED: LEVALBUTEROL HCL NEB 0.63 MG/3 ML AMPUL NEB ONE (12:24)
[2020-09-27] MEDS ORDERED: ONDANSETRON HCL INJ/PF 4 MG/2 ML SDV ONE (12:52)
[2020-09-27] MEDS ORDERED: MIDAZOLAM 2 MG/2 ML INJ ONE ×3 (12:52→14:24)
[2020-09-27] MEDS ORDERED: FENTANYL CITRATE INJ/PF 100 MCG/2 ML AMPUL ONE ×2 (12:52→14:02)
[2020-09-27] MEDS ORDERED: TRYPAN BLUE 0.06 % OPH SOLN 0.5 ML DISP.SYRIN ONE (13:11)
[2020-09-27] MEDS ORDERED: CHONDR SU A NA/HYALUR SOD 0.5 ML DISP.SYRIN ONE ×3 (13:36→14:11)
[2020-09-27] MEDS ORDERED: ACETYLCHOLINE CHLORIDE 20 MG/2 ML KIT ONE (14:01)
[2020-09-27] MEDS ORDERED: BALANCED SALT IRRIG SOLN COMB2 15 ML BOTTLE ONE (14:16)
[2020-09-27] MEDS ORDERED: TOBRAMYCIN SULFATE/DEXAMETH OPH OINTMENT 3.5 GM ONE (14:32)
[2020-09-27] MEDS: DORZOLAMIDE HCL 2%/TIMOLOL MALEAT 0.5% OPH SOLN 10 ML OS PRN ×2 (14:35)
[2020-09-27] MEDS: PREDNISOLONE ACETATE 1% OPH SUSP 5 ML OS PRN ×2 (14:35)
--- NOTE | 2020-09-27 16:18 | Operative Report ---
Operative Report-[facility] Operative Report: DATE OF SURGERY: September 27, 2020 PREOPERATIVE DIAGNOSIS: NUCLEAR CATARACT, LEFT EYE. Poor red reflex complex POSTOPERATIVE DIAGNOSIS: NUCLEAR CATARACT, LEFT EYE. Poor red reflex complex PROCEDURE PERFORMED: PHACOEMULSIFICATION WITH POSTERIOR CHAMBER INTRAOCULAR LENS IMPLANT, LEFT EYE. Complex with trypan blue and anterior vitrectomy SURGEON: Pineda Murphy DO MEDICATIONS AND ANESTHESIA: Versed: IV Versed Tetracaine drops: 1 to 2 drops given as needed COMPLICATION: None INDICATIONS FOR SURGERY: Medical necessity: Best corrected visual acuity worse than 20/40 secondary to cataracts with impairment of ability to carry out needs or desired activities, blurred vision, visual distortion, reduced contrast sensitivity and/or glare with association functional impairment and supporting documentation/testing, and cataracts causing symptomatic impairment of visual functions not corrected with tolerable changes in glasses or contact lenses interfering with activities of daily life. PROCEDURE: Consent: The risks, benefits and alternatives of this procedures was discussed with the patient. The patient read and signed the consent forms, was identified and was seated in the exam chair. IOL: MTA 3U0 19.0 IOL Diopters: Phacoemulsification with posterior chamber intraocular lens implant: The face was prepped with 5% povidone iodine solution, and a few drops of 5% povidone iodine solution was instilled into the inferior fornix. A non-fenestrated drape was placed over the eye and the lids were parted with the speculum. A paracentesis was made with a 15 degree blade, and 1% lidocaine MPF followed by viscoelastic was injected into the anterior chamber. A 2.4 mm metal micro- keratome was used to create a temporal clear corneal incision. Trypan blue was used to stain the anterior capsule. A circular anterior capsulorrhexis was created, followed by hydro-dissection and hydro-delineation. The phacoemulsification hand piece was inserted and the nucleus was removed with the Phaco chop technique. During this part of the case it was noted that zonular support was weakened. With concern that the lens may fall to the posterior pole iris hooks were used to capture the capsule. With the iris hooks in place the remaining nuclear and cortical material were removed. However it was determined that there was no support to place a posterior chamber lens. The iris hooks were removed and an anterior vitrectomy was performed. Next Miochol was used to constrict the pupil the main incision was widened a lens glide was used to insert an anterior chamber IOL. A superior peripheral iridotomy was performed. 4 sutures were used to close the wound. any remaining viscoelastic was removed using the vitrector the wounds were hydrated and the wound appeared watertight. the anterior chamber lens was centered and at this point the lid speculum was removed and the patient was returned to the recovery room Postop medication:1 drop of prednisolone into operative by followed by 1 drop of Cosopt into operative eye followed by 1 drop of Besivance intraoperative by Other:
== END 2020-09-27 15:14 | disposition home or self-care (01) ==
LOC: SC 11:49
PROVIDERS: ATTEND Ophthalmology
DX: H25.12 Age-related nuclear cataract, left eye (principal); I10 Essential (primary) hypertension; E78.00 Pure hypercholesterolemia, unspecified; E03.9 Hypothyroidism, unspecified; J44.9 Chronic obstructive pulmonary disease, unspecified; F17.210 Nicotine dependence, cigarettes, uncomplicated
CPT/HCPCS: 66982; 67010; J3490 ×6; J2250; A9270 ×2; J0171; J3010; J2405; V2630

== ENCOUNTER 2020-10-11 08:29 | Day surgery (SDC) | payer MEDICARE, OTHER ==
[~2020-10-11 08:29] MED LIST changes: +KETOROLAC TROMETHAMINE 0.45% 4 DROP/0.4 ML DROPERETTE OD PRN; -KETOROLAC TROMETHAMINE 0.45% 4 DROP/0.4 ML DROPERETTE OS PRN
[2020-10-11] MEDS ORDERED: ONDANSETRON HCL INJ/PF 4 MG/2 ML SDV ONE (08:41)
[2020-10-11] MEDS ORDERED: MIDAZOLAM 2 MG/2 ML INJ ONE (08:42)
[2020-10-11] MEDS ORDERED: FENTANYL CITRATE INJ/PF 100 MCG/2 ML AMPUL ONE (08:42)
[2020-10-11] MEDS: TROPICAMIDE 1% OPH SOLN 15 ML OD PRN ×3 (09:06→09:22)
[2020-10-11] MEDS: CYCLOPENTOLATE 0.2%/PHENYLEPHRINE 1% OPH SOLN 2 ML OD PRN ×3 (09:06→09:22)
[2020-10-11] MEDS: BESIFLOXACIN HCL 0.6% OPH SUSP 5 ML BOTTLE OD PRN ×4 (09:06→10:05)
[2020-10-11] MEDS: TETRACAINE HCL 0.5% OPH SOLN 4 ML OD PRN ×3 (09:06→09:44)
[2020-10-11] MEDS: DORZOLAMIDE HCL 2%/TIMOLOL MALEAT 0.5% OPH SOLN 10 ML OD PRN ×2 (10:05)
[2020-10-11] MEDS: PREDNISOLONE ACETATE 1% OPH SUSP 5 ML OD PRN ×2 (10:05)
--- NOTE | 2020-10-11 14:47 | Operative Report ---
Operative Report-[facility] Operative Report: DATE OF SURGERY: October 11, 2020 PREOPERATIVE DIAGNOSIS: NUCLEAR CATARACT, RIGHT EYE. POSTOPERATIVE DIAGNOSIS: NUCLEAR CATARACT, RIGHT EYE. PROCEDURE PERFORMED: PHACOEMULSIFICATION WITH POSTERIOR CHAMBER INTRAOCULAR LENS IMPLANT, RIGHT EYE. SURGEON: Pineda Murphy DO MEDICATIONS AND ANESTHESIA: Versed: IV Versed Tetracaine drops: 1 to 2 drops given as needed COMPLICATION: None INDICATIONS FOR SURGERY: Medical necessity: Best corrected visual acuity worse than 20/40 secondary to cataracts with impairment of ability to carry out needs or desired activities, blurred vision, visual distortion, reduced contrast sensitivity and/or glare with association functional impairment and supporting documentation/testing, and cataracts causing symptomatic impairment of visual functions not corrected with tolerable changes in glasses or contact lenses interfering with activities of daily life. PROCEDURE: Consent: The risks, benefits and alternatives of this procedures was discussed with the patient. The patient read and signed the consent forms, was identified and was seated in the exam chair. IOL: MX 60 E 24.5 IOL Diopters: Phacoemulsification with posterior chamber intraocular lens implant: The face was prepped with 5% povidone iodine solution, and a few drops of 5% povidone iodine solution was instilled into the inferior fornix. A non-fenestrated drape was placed over the eye and the lids were parted with the speculum. A paracentesis was made with a 15 degree blade, and 1% lidocaine MPF followed by viscoelastic was injected into the anterior chamber. A 2.4 mm metal micro- keratome was used to create a temporal clear corneal incision. A circular anterior capsulorrhexis was created, followed by hydro-dissection and hydro- delineation. The phacoemulsification hand piece was inserted and the nucleus was removed with the Phaco chop technique. The irrigation-aspiration hand piece was used to remove the residual cortex, and vacuum the posterior capsule. The capsular bag was inflated and viscoelastic and the above-mentioned IOL was injected into the eye with care to insert both leaning and trailing haptics in the capsular bag. The irrigation/aspiration hand piece was reinserted to remove residual viscoelastic from the capsular bag and anterior chamber. The corneal incision was hydrated, and anterior chamber was inflated with sterile BSS via the paracentesis site, and found to be watertight. Postop medication: 1 drop of prednisolone into operative by followed by 1 drop of Cosopt into operative eye followed by 1 drop of Besivance intraoperative by other:
== END 2020-10-11 10:39 | disposition home or self-care (01) ==
LOC: SC 08:29
PROVIDERS: ATTEND Ophthalmology
DX: H25.11 Age-related nuclear cataract, right eye (principal); Z98.42 Cataract extraction status, left eye; I10 Essential (primary) hypertension; E78.00 Pure hypercholesterolemia, unspecified; E03.9 Hypothyroidism, unspecified; J44.9 Chronic obstructive pulmonary disease, unspecified; F17.210 Nicotine dependence, cigarettes, uncomplicated
CPT/HCPCS: 66984; V2632; J2250; J3490 ×2; A9270; J0171; J3010; J2405